=== PATIENT | female | born 1930 | race Caucasian/White ===

== ENCOUNTER 2017-01-23 05:00 | Day surgery (SDC) | payer MEDICARE ==
[2017-01-22 17:00] LABS: BASOPHILS 0.8 % (0-2); EOSINOPHILS 3.8 % (0-7); HEMATOCRIT 39.7 % (36.0-48.0); HEMOGLOBIN 13.3 g/dL (12-16); IMMATURE GRANULOCYTES 0.2 % (0-5); LYMPHOCYTES 26.9 % (15-50); MCH 34.7 pg (26.0-34.0); MCHC 33.5 g/dL (31.0-37.0); MCV 103.7 fL (80.0-100.0); MEAN PLATELET VOLUME 10.1 fL (7.4-10.4); MONOCYTES 7.7 % (2-11); NEUTROPHILS 60.6 % (40-80); PLATELET COUNT 229 10x3/uL (130-400); RBC 3.83 10x6/uL (4.00-5.40); RDW 13.1 % (11.5-14.5); WBC 6.3 10x3/uL (4.8-10.8)
[2017-01-22 17:07] LABS: ANION GAP 13.5 mmol/L (8-16); CALCIUM 9.1 mg/dL (8.5-10.1); CARBON DIOXIDE 27.6 mmol/L (21.0-32.0); POTASSIUM - SERUM 4.1 mmol/L (3.5-5.1)
[~2017-01-23 05:00] MED LIST: CELEBREX 100 M100 MG PO; CETIRIZINE HCL5 MG PO; FLUTICASONE PRO16 GM NASAL; ICAPS MV TAB1 TAB.EC PO; LEVOTHYROXINE125 MCG PO; MUCINEX D1 TAB.SR . PO; MULTIPLE VITAMI1 TA1 PO; NIACIN250 M1 PO; NORVASC2.5 MG PO; PROTONIX40 MG PO; TIMOPTIC 0.5 % O5 ML RIGHT EYE; XALATAN 0.0052.5 ML EACH EYE
[2017-01-23 05:57] VITALS: BP 198/90; BMI 28.8
--- NOTE | 2017-01-23 06:32 | NUR ---
0615 PT ORDERS ARE NOT CORRECT. ORDER STATES "RIGHT SIOBHAN" WHEN IT SHOULD BE THE LEFT SIOBHAN. DR. NOYOLA CALLED BUT DID NOT ANSWER. VOICEMAIL PLACED. WHALEN IN SURGERY NOTIFIED. SHE CLARIFIED THAT IT WAS THE LEFT SIDE. CONSENTS THEREFORE SIGNED BUT NO CORRECTED ORDER GIVEN.
--- NOTE | 2017-01-23 15:55 | NUR ---
1000--IV DC'D. MARCO JOSEPH 1020--DISCHARGE INSTRUCTIONS GIVEN, PT VERBALIZES UNDERSTANDING. PT OFF UNIT VIA WC. MARCO JOSEPH
--- NOTE | 2017-02-13 13:09 | OP ---
PATIENT NAME: DAMION YOUNG MEDICAL RECORD: [id number] :[birth year] LOCATION:[facility] ADMISSION DATE: SURGEON: BUTCH BYRNES DPM DATE OF OPERATION: 01/23/2017 PREOPERATIVE DIAGNOSIS: Hallux abductovalgus, left foot. POSTOPERATIVE DIAGNOSIS: Hallux abductovalgus, left foot. PROCEDURE: Tariq bunionectomy of left foot with 0.062-inch K-wire fixation. ANESTHESIA: General with local infiltrate utilizing lidocaine and Marcaine plain, approximately 10 cc total of lidocaine and Marcaine plain around the first ray of the left foot. HEMOSTASIS: Left ankle tourniquet at 250 mmHg. PREOPERATIVE DETAILS: The patient was taken to the OR and placed on the operating table in a supine position. This was followed by induction of general anesthesia and infiltration of local anesthetic. The left extremity was then prepped and draped in the usual aseptic technique, followed by exsanguination of extremity and inflation of tourniquet. A 15 blade was used to create a 3-cm linear incision over the dorsal aspect of the left first ray extending to the base of the proximal phalanx of the hallux. The incision was deepened down through subcutaneous tissue being sure to avoid all vital structures. Dissection was carried down to the first MPJ, where an inverted L capsulotomy was performed. The medial capsular flap was reflected and the head of the first metatarsal was delivered. A sagittal saw was used to resect the medial eminence. Attention was directed to the first interspace, where a lateral release was performed. Attention was then redirected to the medial aspect of the head of the first metatarsal, where a sagittal saw was used to create a V-osteotomy through and through the capital fragment and was translocated laterally and fixated with a 0.062-inch K-wire. The pin was cut. The medial redundant shelf was resected with a sagittal saw. The wound was flushed. The capsule was repaired with 2-0 Vicryl, the subcutaneous tissue with 4-0 Vicryl, and the skin was closed with 5-0 Prolene in a subcuticular technique followed by Dermabond, Adaptic, 4 x 4, and Conform, followed by Coban were used to dress the wound. Tourniquet was deflated. POSTOPERATIVE DETAILS: The patient tolerated the procedure well and left the OR with vital signs stable and vascular status at preoperative levels. The patient was transported to recovery per anesthesia in stable condition. TRANSINT:[id number] Voice Confirmation ID: [id number] DOCUMENT ID: [id number] BUTCH BYRNES DPM at 1309 CC: [id number] DICTATION DATE: 01/23/17 0759 ELEVATOR SERVICE TECHNICIAN: 01/23/[address] [facility] 01/23/[address] [id number]
== END 2017-01-23 12:20 | disposition home or self-care (01) ==
LOC: D.OPS 05:00 → D.PAN 07:00 → D.OPS 07:00
PROVIDERS: Anesthesiology
DX: M20.12 Hallux valgus (acquired), left foot (principal); I10 Essential (primary) hypertension; Z01.812 Encounter for preprocedural laboratory examination